=== PATIENT | female | born 1965 | race Caucasian/White ===

== ENCOUNTER 2017-01-01 10:54 | Emergency (ER) | payer OTHER ==
[~2017-01-01] VITALS: Ht 170.2 cm; Wt 120.0 kg
[~2017-01-01 10:54] MED LIST: CELEBREX100 M1 PO; DICLOFENAC SODI75 MG PO; NAPROSYN500 MG PO; NO HOME MEDS; TORADOL PO; TRAMADOL HCL50 MG PO
[2017-01-01 11:54] LABS: HEMOGLOBIN 12.9 g/dl (12.0-16.0); IMMATURE GRANULOCYTES 1.9 % (0.0-1.0); MEAN CELL VOLUME 90.3 fL CALC (80.0-100.0); MEAN CORPUSCULAR HGB 29.1 pG CALC (26.0-32.0); MEAN CORPUSCULAR HGB CONC 32.3 g/L CALC (32.0-36.0); NEUT# 11.01 thou/uL (2.00-7.15); RED BLOOD COUNT 4.43 mill/uL (4.20-5.60); RED CELL DISTRI WIDTH 13.8 % (11.5-15.5)
[2017-01-01 12:00] LABS: ALBUMIN 4.3 g/dL (3.2-5.0); ALKALINE PHOSPHATASE 59 u/l (38-126); ANION GAP 16 (6-22 (CALC)); BILIRUBIN, TOTAL 0.4 mg/dL (0.0-1.4); BUN 14 mg/dL (7-17); BUN/CREATININE RATIO 20 (12-20 (CALC)); CALCIUM 9.6 mg/dL (8.4-10.2); CARBON DIOXIDE 27 mmol/l (22-30); CHLORIDE 103 mmol/l (95-108); CREATININE 0.7 mg/dL (0.5-1.0); GFR > 60 ML/MIN (>=60 (CALC)); GFR FOR AFR.AMER. > 60 ML/MIN (>=60 (CALC)); GLUCOSE 88 mg/dL (65-105); POTASSIUM 3.6 mmol/l (3.5-5.1); SGOT/AST 18 u/l (14-36); SGPT/ALT 29 u/l (9-52); SODIUM 142 mmol/l (137-146); TOTAL PROTEIN 7.7 g/dL (6.3-8.2)
[2017-01-01] MEDS ORDERED: PROVERA10 MG PO (13:43)
[2017-01-01] MEDS ORDERED: MOTRIN800 MG PO (13:48)
[2017-01-01 13:53] VITALS: BP 137/87
== END 2017-01-01 14:03 | disposition home or self-care (01) | DRG 760 ==
LOC: ED 10:54
PROVIDERS: Emergency Medicine
DX: N93.9 Abnormal uterine and vaginal bleeding, unspecified (principal); E24.2 Drug-induced Cushing's syndrome; T38.0X5A Adverse effect of glucocorticoids and synthetic analogues, initial encounter; M06.9 Rheumatoid arthritis, unspecified; M47.812 Spondylosis without myelopathy or radiculopathy, cervical region

== ENCOUNTER 2017-04-28 15:27 | Emergency (ER) | payer OTHER ==
[~2017-04-28] VITALS: Ht 170.2 cm; Wt 108.0 kg
[~2017-04-28 15:27] MED LIST changes: +MOTRIN800 MG PO; +PROVERA10 MG PO
[2017-04-28] MEDS ORDERED: MELOXICAM7.5 MG PO (15:37)
[2017-04-28] MEDS ORDERED: MEDROL2 MG PO (15:40)
[2017-04-28 16:18] LABS: HEMATOCRIT 39.3 % (37.0-47.0); HEMOGLOBIN 12.6 g/dl (12.0-16.0); IMMATURE GRANULOCYTES 3.3 % (0.0-1.0); MEAN CELL VOLUME 88.1 fL CALC (80.0-100.0); MEAN CORPUSCULAR HGB 28.3 pG CALC (26.0-32.0); MEAN CORPUSCULAR HGB CONC 32.1 g/L CALC (32.0-36.0); NEUT# 13.96 thou/uL (2.00-7.15); RED BLOOD COUNT 4.46 mill/uL (4.20-5.60); RED CELL DISTRI WIDTH 14.6 % (11.5-15.5)
[2017-04-28 16:27] LABS: ALBUMIN 4.2 g/dL (3.2-5.0); ALKALINE PHOSPHATASE 65 u/l (38-126); ANION GAP 18 (6-22 (CALC)); BILIRUBIN, TOTAL 0.6 mg/dL (0.0-1.4); BUN 14 mg/dL (7-17); BUN/CREATININE RATIO 21 (12-20 (CALC)); CALCIUM 9.3 mg/dL (8.4-10.2); CARBON DIOXIDE 26 mmol/l (22-30); CHLORIDE 103 mmol/l (95-108); CREATININE 0.7 mg/dL (0.5-1.0); GFR > 60 ML/MIN (>=60 (CALC)); GFR FOR AFR.AMER. > 60 ML/MIN (>=60 (CALC)); GLUCOSE 90 mg/dL (65-105); POTASSIUM 4.2 mmol/l (3.5-5.1); SGOT/AST 25 u/l (14-36); SGPT/ALT 33 u/l (9-52); SODIUM 143 mmol/l (137-146); TOTAL PROTEIN 8.2 g/dL (6.3-8.2)
[2017-04-28 17:38] VITALS: BP 152/94
== END 2017-04-28 17:45 | disposition home or self-care (01) | DRG 556 ==
LOC: ED 15:27
PROVIDERS: Emergency Medicine
DX: M79.89 Other specified soft tissue disorders (principal)
CPT/HCPCS: Q9967

== ENCOUNTER 2017-11-05 14:12 | Emergency (ER) | payer OTHER ==
[~2017-11-05] VITALS: Ht 170.2 cm; Wt 108.0 kg
[~2017-11-05 14:12] MED LIST changes: +MEDROL2 MG PO; +MELOXICAM7.5 MG PO
[2017-11-05] MEDS ORDERED: IBUPROFEN200 MG PO (14:20)
[2017-11-05] MEDS ORDERED: AMOXICILLIN500 MG PO (14:49)
[2017-11-05] MEDS ORDERED: CORTISPORIN OTI10 M2 AD (14:49)
[2017-11-05 15:00] VITALS: BP 128/78
== END 2017-11-05 15:04 | disposition home or self-care (01) | DRG 153 ==
LOC: ED 14:12
DX: H66.91 Otitis media, unspecified, right ear (principal); H60.91 Unspecified otitis externa, right ear; J02.9 Acute pharyngitis, unspecified